=== PATIENT | female | born 1980 | race Hispanic/Latino ===

== ENCOUNTER 2018-03-27 15:18 | Emergency (ER) | payer MEDICAID, SELFPAY ==
[2018-03-27 16:05] LABS: #Basophils 0.1 thou/uL (0.0-0.2); #Eosinphils 0.7 thou/uL (0.0-0.7); #Lymphocytes 2.9 thou/uL (1.20-3.40); #Monocytes 0.6 thou/uL (0.11-0.59); #Neutrophils 6.4 thou/uL (1.40-6.50); %Basophils 0.6 % (0.0-1.0); %Eosinophils 6.5 % (0.0-10.0); %Lymphocytes 26.9 % (21.0-51.0); %Monocytes 5.5 % (0.0-10.0); %Neutrophils 60.5 % (42.0-75.0); Hemoglobin 13.6 g/dL (12.0-16.0); Mean Corpuscular HGB CONC 33.8 g/dL (32.0-36.0); Mean Corpuscular Volume 91.8 fL (78.0-98.0); Mean Platelet Volume 6.9 fL (7.4-10.4); Platelet Count 298 thou/uL (130-400); RBC Distribution Width 11.6 % (11.5-14.5); Red Blood Cell (RBC) Count 4.38 mill/uL (4.20-5.40); White Blood Cell (WBC) Count 10.6 thou/uL (4.8-10.8)
[2018-03-27 17:14] LABS: Bilirubin Negative (Negative); Blood, Urine Large (Negative); Clarity CLEAR (Clear); Glucose, Urine (Dipstick) Negative (Negative); Leukocyte Small (Negative); Nitrite Negative (Negative); Protein, Urine (Dipstick) Negative (Neg-Trace); Specific Gravity, Urine 1.012 (1.002-1.036); Urobilinogen 0.2 mg/dL (0.2-1.0)
[2018-03-27 17:16] LABS: Bacteria/HPF None Seen HPF (None Seen); Hyaline Casts/LPF 0-3 HYALINE CAST LPF (0-3 Hyaline); Pathc Cast-AUWi Flag 0.58 (0-2.49); RBC/HPF GREATER THAN 50-TNTC HPF (0-3); Squamous Epithelial 0-3 HPF (0-3)
--- NOTE | 2018-03-27 17:40 | ULT ---
PELVIC ULTRASOUND: 03/27/18 HISTORY: Vaginal bleeding. patient with bleeding. COMPARISON: 07/08/15. TECHNIQUE: Transabdominal and endovaginal imaging of pelvis is performed. Ovaries are interrogated with parks sca le, color flow, doppler imaging and spectral waveform analysis. FINDINGS: There is heterogeneity in the cervix which is nonspecific. The patient does have a positive serum bet a HCG. Possibility of blood products cannot be excluded. Overall, the uterus measures 4.9 x 4.6 x 8.8 cm. Endometrium has a homogeneous echotexture. No evidence of a gestational sac, yolk sac or p ole in the endometrium. There is anechoic focus in the right ovary measuring 2.4 x 1.2 x 1.8 cm. possibility of a follicle or corpus luteal cyst is raised. Overall, the right ovary measures 2.0 x 3.0 x 1.8 cm. The left ovary has a normal echotexture measuring 1.7 x 2.0 x 2.3 cm. there is no free fluid in the p mariela. OVARIAN DOPPLER: Vascular flow to both ovaries. IMPRESSION: No sonographic evidence of an intrauterine gestation. Complex echotexture in the lower uterine pelvis which may represent blood products, given the patient's history of bleeding. Followup ultrasound and serial beta HCGs are recommended. POS: ROSEANNA
== END 2018-03-27 17:30 | disposition home or self-care (01) ==
LOC: ERS 15:18
DX: O20.0 Threatened abortion (principal)
CPT/HCPCS: 36415; 76856; 81003; 81015; 84702; 85025; 86900; 86901; 87480; 87491; 87510; 87591; 87660

== ENCOUNTER 2019-09-11 07:20 | Outpatient (CLI) | payer OTHER ==
--- NOTE | 2019-09-11 08:10 | ULT ---
EXAM: OB ultrasound COMPARISON: None HISTORY: female. Evaluate size, dates, and anatomy. TECHNIQUE: Multiplanar grayscale and color Doppler transabdominal sonographic images are obtained. FINDINGS: There is a single intrauterine gestation in cephalic presentation. Cardiac Doppler demonstr ates heart tones with a heart rate of 144 beats per minute. The placenta is located maternal left and posteriorly without evidence of placenta previa. Subjectively, there is a normal am ount of amniotic fluid. Amniotic fluid index was not calculated. The cervical length based on transabdominal imaging measures 2.8 centimeters based on transabdominal imaging. biometry measurements: BPD 5.17 cm -- 21 weeks 5 days HC 18.83 cm -- 21 weeks 1 day AC 16.2 cm -- 21 weeks 2 days FL 3.59 cm -- 21 weeks 3 days The estimated gestational age by ultrasound is 21 weeks 3 days with an OLIVA on01/22/2020. Gestational ag e by the last menstrual period is 21 weeks. The estimated weight by ultrasound is 415 g (15 ounces). This represents 62 percentile for feta l weight. A 4 chambered heart is visualized. The cerebellum, visualized portions of the spine, kidneys, u rinary bladder, and cord insertion demonstrate a normal sonographic appearance. A three-vessel cord is not visualized, but there is flow on either side of the urinary bladder sugges ting a three-vessel cord.. No anomalies are seen. IMPRESSION: 1. Single intrauterine gestation in cephalic presentation with heart tones documented. Estimat ed gestational age by ultrasound is 21 weeks 3 days. 2. Estimated weight is 415 g (15 ounces). 3. Cervical length measures 2.8 cm. While this is decreased, I am unsure if this is an accurate measu rement as only a single image of the cervix is provided.
== END 2019-09-11 07:21 | disposition home or self-care (01) ==
LOC: BICULT 07:20
PROVIDERS: ATTEND Family Medicine
DX: O09.522 Supervision of elderly multigravida, second trimester (principal)
CPT/HCPCS: 76805

== ENCOUNTER 2019-11-28 09:31 | Outpatient (CLI) | payer OTHER ==
--- NOTE | 2019-11-28 12:20 | ULT ---
OB ULTRASOUND: INDICATION: Followup to prior ultrasound. FINDINGS: Single intrauterine is identified. Gestational age by ultrasound is 32 weeks 4 days. Biom etry measurements are consistent as noted. BPD: 32 weeks 0 days. HC: 32 weeks 3 days. AC: 33 weeks 2 days. FL: 32 weeks 4 days. EFW: 2061 gm, 33 weeks 4 days. Amniotic fluid: Within normal range. STANISLAV recorded at 13.4 cm. heart rate: 136 b.p.m. Placenta: Fundal. Presentation: Vertex. Cervical length: Adequate. Two cervical length measurements were recorded, one at 4.6 cm and the ot her at 3.7 cm. anatomy was not evaluated. IMPRESSION: A 32-week 4-day gestation by ultrasound. No abnormality identified. POS: AGW
== END 2019-11-28 09:32 | disposition home or self-care (01) ==
LOC: BICULT 09:31
PROVIDERS: ATTEND Family Medicine
DX: O09.523 Supervision of elderly multigravida, third trimester (principal); Z3A.34 34 weeks gestation of pregnancy
CPT/HCPCS: 76805

== ENCOUNTER 2019-12-29 02:51 | Inpatient (IN) | payer MEDICAID, OTHER, SELFPAY ==
[2019-12-29 03:19] VITALS: BMI 25.0
[2019-12-29] MEDS ORDERED: Promethazine HCl 25 MG/ML VIAL IM PRN ×2 (03:42→05:15)
[2019-12-29] MEDS ORDERED: hydrALAZINE 20 MG/ML VIAL SLOW IVP PRN ×2 (03:42→09:49)
[2019-12-29] MEDS ORDERED: Ondansetron PF 4 MG/2 ML Vial IVP PRN ×3 (03:42→09:49)
[2019-12-29] MEDS ORDERED: Acetaminophen 500 MG TAB PO PRN (03:42)
[2019-12-29] MEDS ORDERED: Butorphanol Tartrate 1 MG/ML VIAL SLOW IVP PRN (03:42)
[2019-12-29] MEDS ORDERED: Lactated Ringer's 1,000 ML IV SCH (03:42)
[2019-12-29] MEDS ORDERED: Misoprostol 200 MCG TAB RC PRN (03:45)
[2019-12-29] MEDS ORDERED: Methylergonovine 0.2 MG/ML VIAL IM PRN (03:45)
[2019-12-29] MEDS ORDERED: Ibuprofen 800 MG TAB PO PRN (03:45)
[2019-12-29] MEDS ORDERED: NS w/ Oxytocin 10 units 500 ML IV SCH ×2 (03:45)
[2019-12-29] MEDS ORDERED: Penicillin G Potassium 5 MILL.UNITS in Sodium Chloride 0.9% 100 ML IVPB SCH (03:45)
[2019-12-29] MEDS ORDERED: Lidocaine 1% (PF) 30 ML VIAL SC PRN (03:45)
[2019-12-29] MEDS ORDERED: Penicillin G 2.5 MILL.units 2.5 MILL.UNITS in Premix Bag 1 BAG IVPB SCH (04:00)
[2019-12-29 04:01] LABS: Hemoglobin 12.5 g/dL (12.0-16.0); Mean Corpuscular Hemoglobin 29.9 pg (27.0-31.0); Mean Corpuscular Volume 90.4 fL (78.0-98.0); Mean Platelet Volume 7.4 fL (7.4-10.4); Platelet Count 218 thou/uL (130-400); RBC Distribution Width 11.9 % (11.5-14.5); Red Blood Cell (RBC) Count 4.18 mill/uL (4.20-5.40); White Blood Cell (WBC) Count 9.2 thou/uL (4.8-10.8)
[2019-12-29] MEDS ORDERED: Fentanyl 4 mcg/Bup 0.1% Cadd 100 ML ONE (04:10)
[2019-12-29 04:43] LABS: HBSAg Index 0.12 S/CO (0-0.99); Hep B Surf Ag Non-Reactive S/CO (NonReactive); Syphilis Antibody Nonreactive (Nonreactive); Syphilis Antibody Index 0.04 S/CO (<1.00 Non-Reactive)
[2019-12-29] MEDS ORDERED: Lactated Ringer's 500 ML IV PRN (05:15)
[2019-12-29] MEDS ORDERED: Communication Order-Pharmacy FS SCH (05:15)
[2019-12-29] MEDS ORDERED: Acetaminophen 325 MG TAB PO PRN (05:15)
[2019-12-29] MEDS ORDERED: Fentanyl 4 mcg/Bupivacaine 0.1% Cassette 100 ML EPIDURAL SCH (05:15)
[2019-12-29] MEDS ORDERED: diphenhydrAMINE 50 MG/ML VIAL IVP PRN (05:15)
[2019-12-29] MEDS ORDERED: Naloxone HCl 0.4 mg/ml Vial IVP PRN ×2 (05:15)
[2019-12-29] MEDS ORDERED: EPHEDRINE 25 MG/5 ML SYRINGE SLOW IVP PRN (05:15)
[2019-12-29] MEDS ORDERED: Lidocaine 1% (PF) 30 ML VIAL ONE (05:20)
[2019-12-29] MEDS ORDERED: NS / Oxytocin 40 units/1000ml 1,000 ML ONE (05:20)
[2019-12-29] MEDS: NS / Oxytocin 40 units/1000ml 1,000 ML IV SCH ×2 (06:12→07:03)
[2019-12-29] MEDS ORDERED: diphenhydrAMINE 25 MG CAP PO PRN (09:49)
[2019-12-29] MEDS ORDERED: Milk Of Magnesia 30 ML UDCUP PO PRN (09:49)
[2019-12-29] MEDS ORDERED: NS / Oxytocin 40 units/1000ml 1,000 ML IV SCH (09:49)
[2019-12-29] MEDS ORDERED: Preparation H Ointment 28 GM TUBE PR PRN (09:49)
[2019-12-29] MEDS ORDERED: Benzocaine-Menthol 82.5 ML CAN TOP PRN (09:49)
[2019-12-29] MEDS ORDERED: HYDROcodone/Acetaminophen 5/325 mg Tablet PO PRN (09:49)
[2019-12-29] MEDS ORDERED: Lanolin Ointment 7 GM TUBE TOP PRN (09:49)
[2019-12-29] MEDS ORDERED: Bisacodyl 10 MG SUPP PR PRN (09:49)
[2019-12-29] MEDS: HYDROcodone/Acetaminophen 5/325 mg Tablet PO PRN ×2 (10:26→20:30)
[2019-12-29] MEDS: Ibuprofen 800 MG TAB PO SCH ×2 (14:03→21:45)
[2019-12-29] MEDS: Ferrous Sulfate 325 MG TAB PO SCH (15:16)
[2019-12-29] MEDS: Docusate Calcium (SURFAK) 240 MG CAP PO SCH (20:30)
[2019-12-30] MEDS: Ibuprofen 800 MG TAB PO SCH ×3 (05:16→21:26)
[2019-12-30 05:44] LABS: Hemoglobin 8.4 g/dL (12.0-16.0); Mean Corpuscular HGB CONC 33.4 g/dL (32.0-36.0); Mean Corpuscular Hemoglobin 30.9 pg (27.0-31.0); Mean Corpuscular Volume 92.5 fL (78.0-98.0); Mean Platelet Volume 7.4 fL (7.4-10.4); Platelet Count 168 thou/uL (130-400); RBC Distribution Width 12.1 % (11.5-14.5); White Blood Cell (WBC) Count 10.7 thou/uL (4.8-10.8)
[2019-12-30] MEDS: Prenatal Vitamin 1 TAB PO SCH (10:21)
[2019-12-30] MEDS: Ferrous Sulfate 325 MG TAB PO SCH ×2 (10:21→16:39)
[2019-12-30] MEDS: Docusate Calcium (SURFAK) 240 MG CAP PO SCH ×2 (10:21→21:26)
[2019-12-31] MEDS: Ibuprofen 800 MG TAB PO SCH (05:47)
[2019-12-31] MEDS: Prenatal Vitamin 1 TAB PO SCH (08:26)
[2019-12-31] MEDS: Ferrous Sulfate 325 MG TAB PO SCH (08:26)
[2019-12-31] MEDS: Docusate Calcium (SURFAK) 240 MG CAP PO SCH (08:27)
[2019-12-31 08:54] VITALS: BP 134/71; TEMP 98.3
[2019-12-31] MEDS ORDERED: Adacel (T-DAP) 0.5 ML SYRINGE IM ONE (11:00)
--- NOTE | 2020-01-02 06:02 | PQF ---
Myra Johnson ROLAND R MD [id number] CLINICAL DOCUMENTATION CLARIFICATION FORM: POST DISCHARGE Addendum to original discharge summary date: ____ Late entry note date: __ DATE: 01/02/2020 ATTN: Kevin Peña Please exercise your independent, professional judgment in responding to the clarification form. Clinical indicators are provided on the bottom of this form for your review Please check appropriate box(s): [ ] Associated Diagnosis: Acute blood loss Anemia [ ] Abnormal Laboratory findings not clinically significant [ ] Other diagnosis [ ] Unable to determine In addition, please specify: Present on Admission (POA): [ ] Yes [ ] No [ ] Unable to determine For continuity of documentation, please document condition throughout progress notes and discharge summary. Thank You. CLINICAL INDICATORS - SIGNS / SYMPTOMS/ LABS are present in the medical record: Laboratory 12/28 RBC 1.48, Hgb 12.5, Hct 37.8 Laboratory 12/29 RBC 2.70, Hgb 8.4, Hct 25.0 Vital signs 12/28 BP 119/59, Pulse 99, Resp 18, Temp 98.5 Scanned PN p2 12/28 Estimated blood loss 274 ml RISK FACTORS H&P p1 12/28 Labor H&P p1 12/28 36 weeks of gestation H&P p1 12/28 GDM Scanned PN p2 12/28 s/p VAVD Scanned PN p2 12/28 2nd degree laceration TREATMENT Hgb and Hct monitoring order 12/28SEP 19 Ferrous Sulfate 325 oral SEP 19 IV Lactated Ringer's 1L (This form is maintained as a part of the permanent medical record) 2014 [employer] All Rights Reserved [employer]
== END 2019-12-31 10:55 | disposition home or self-care (01) | DRG 807 ==
LOC: L&D/OP 02:51 → L&D 03:29 → 3SW 11:45
PROVIDERS: ADMIT Family Medicine; ATTEND Family Medicine
PROC: 10D07Z6 Extraction of Products of Conception, Vacuum, Via Natural or Artificial Opening (ICD-10-PCS; principal; 2019-12-29)
PROC: 0KQM0ZZ Repair Perineum Muscle, Open Approach (ICD-10-PCS; 2019-12-29)
PROC: 3E0234Z Introduction of Serum, Toxoid and Vaccine into Muscle, Percutaneous Approach (ICD-10-PCS; 2019-12-29)
DX: O60.14X0 Preterm labor third trimester with preterm delivery third trimester, not applicable or unspecified (principal); Z37.0 Single live birth; Z3A.36 36 weeks gestation of pregnancy; O76 Abnormality in fetal heart rate and rhythm complicating labor and delivery; O69.81X0 Labor and delivery complicated by cord around neck, without compression, not applicable or unspecified; O24.420 Gestational diabetes mellitus in childbirth, diet controlled; O99.824 Streptococcus B carrier state complicating childbirth; O70.1 Second degree perineal laceration during delivery; Z23 Encounter for immunization
CPT/HCPCS: 36415; 85027; 86780; 86850; 86900; 86901; 87340; 88307; 90715; 99285; J2001; J2540; J3490